=== PATIENT | female | born 1985 | race Caucasian/White ===

== ENCOUNTER 2017-04-11 00:30 | Emergency (ER) | payer OTHER ==
[~2017-04-11] VITALS: Ht 165.1 cm; Wt 72.0 kg
[2017-04-11 00:58] LABS: APPEARANCE,URINE TURBID (CLEAR); GLUCOSE, URINE (UA) NEGATIVE (NEGATIVE); KETONES,URINE TRACE mg/dL (NEGATIVE); LEUKOCYTE ESTERASE ,URINE LARGE (NEGATIVE); OCCULT BLOOD,URINE LARGE (NEGATIVE); PROTEIN,URINE SEE CONFIRM (NEGATIVE)
[2017-04-11 01:00] LABS: ADD UA MICROSCOPIC YES
[2017-04-11 01:14] LABS: RBC,URINE 51-100 /HPF (0-2); SULFOSALICYLIC ACID,URINE 3+ (Negative)
[2017-04-11 01:15] LABS: WBC,URINE 26-50 /HPF (0-5)
[2017-04-11 02:42] VITALS: BP 126/79
== END 2017-04-11 02:42 | disposition home or self-care (01) ==
LOC: EMS 00:33
DX: N39.0 Urinary tract infection, site not specified (principal)
CPT/HCPCS: 87086; 99284